=== PATIENT | female | born 1945 | race Caucasian/White ===

== ENCOUNTER 2018-10-14 18:13 | Outpatient (CLI) | payer OTHER ==
[~2018-10-14 18:13] MED LIST: GLUCOPHAGE XR500 MG PO; HYZAAR 100-251 UDTAB PO; METOPROLOL SUC100 MG PO; NAPR500T14 PO; NORVASC5 MG PO
== END 2018-10-14 18:56 | disposition home or self-care (01) ==
LOC: LAB 18:13
DX: N30.00 Acute cystitis without hematuria (principal); B96.29 Other Escherichia coli [E. coli] as the cause of diseases classified elsewhere; B96.1 Klebsiella pneumoniae [K. pneumoniae] as the cause of diseases classified elsewhere

== ENCOUNTER 2018-10-30 13:21 | Outpatient (CLI) | payer OTHER | END 2018-10-30 13:29 | disposition home or self-care (01) | LOC: LAB 13:21 | DX: N30.00 Acute cystitis without hematuria (principal); B96.5 Pseudomonas (aeruginosa) (mallei) (pseudomallei) as the cause of diseases classified elsewhere; B96.1 Klebsiella pneumoniae [K. pneumoniae] as the cause of diseases classified elsewhere ==

== ENCOUNTER → 2019-01-01 | Outpatient (CLI) | payer OTHER | END | disposition home or self-care (01) | LOC: LAB 15:24 | DX: N30.00 Acute cystitis without hematuria (principal); B96.89 Other specified bacterial agents as the cause of diseases classified elsewhere ==

== ENCOUNTER 2019-02-04 11:18 | Outpatient (CLI) | payer OTHER | END 2019-02-04 15:00 | disposition home or self-care (01) | LOC: LAB 11:18 | DX: R05 Cough (principal); R10.2 Pelvic and perineal pain ==

== ENCOUNTER 2019-03-10 09:42 | Outpatient (CLI) | payer OTHER | END 2019-03-10 09:48 | disposition home or self-care (01) | LOC: LAB 09:42 | DX: I10 Essential (primary) hypertension (principal); D68.8 Other specified coagulation defects; E11.9 Type 2 diabetes mellitus without complications ==

== ENCOUNTER 2019-03-23 07:33 | Inpatient (IN) | payer OTHER ==
[~2019-03-23] VITALS: Ht 160 cm; Wt 72.1 kg
[2019-03-25] MEDS ORDERED: GABAPENTIN300 MG PO (07:40)
[2019-03-25] MEDS ORDERED: LEVOTHYROXINE50 MCG PO (07:40)
== END 2019-03-31 10:34 | disposition home or self-care (01) | DRG 748 ==
LOC: ADM 10:15 → EDSTATUS 10:15 → OB/GYN 03-25 06:37 → O/R 03-25 06:37 → OB/GYN 03-25 07:00
PROVIDERS: ADMIT Obstetrics & Gynecology
PROC: 0JQC0ZZ Repair Pelvic Region Subcutaneous Tissue and Fascia, Open Approach (ICD-10-PCS; principal; 2019-03-25 07:00)
DX: N81.11 Cystocele, midline (principal); R33.8 Other retention of urine; N32.81 Overactive bladder; N39.41 Urge incontinence; D28.1 Benign neoplasm of vagina

== ENCOUNTER → 2019-03-23 09:47 | Outpatient (CLI) | payer OTHER ==
[~2019-03-23 09:47] MED LIST changes: +GABAPENTIN300 MG PO; +LEVOTHYROXINE50 MCG PO
== END | disposition home or self-care (01) ==
LOC: LAB 09:47
DX: E11.9 Type 2 diabetes mellitus without complications (principal)

== ENCOUNTER 2020-06-15 10:17 | Outpatient (CLI) | payer OTHER | END 2020-06-15 10:36 | disposition home or self-care (01) | LOC: NUCLEAR 10:17 | PROVIDERS: ATTEND Physical Medicine & Rehabilitation | DX: I73.9 Peripheral vascular disease, unspecified (principal) ==

== ENCOUNTER 2020-06-17 11:30 | Outpatient (CLI) | payer OTHER | END 2020-06-17 11:37 | disposition home or self-care (01) | LOC: NUCLEAR 11:30 → MRI 11:30 → NUCLEAR 11:37 → MRI 06-20 10:15 | PROVIDERS: ATTEND Physical Medicine & Rehabilitation | DX: I87.2 Venous insufficiency (chronic) (peripheral) (principal); I73.9 Peripheral vascular disease, unspecified ==

== ENCOUNTER 2020-06-20 10:40 | Outpatient (CLI) | payer OTHER | END 2020-06-20 10:53 | disposition home or self-care (01) | LOC: RAD 10:40 | PROVIDERS: ATTEND Physical Medicine & Rehabilitation | DX: M54.16 Radiculopathy, lumbar region (principal); M17.12 Unilateral primary osteoarthritis, left knee; M16.0 Bilateral primary osteoarthritis of hip; M54.5 Low back pain ==

== ENCOUNTER 2020-08-19 11:02 | Outpatient (CLI) | payer OTHER | END 2020-08-19 11:19 | disposition home or self-care (01) | LOC: RAD 11:02 | PROVIDERS: ATTEND Orthopaedic Surgery | DX: M16.11 Unilateral primary osteoarthritis, right hip (principal); Z76.89 Persons encountering health services in other specified circumstances ==

== ENCOUNTER 2020-09-07 13:10 | Outpatient (CLI) | payer OTHER | END 2020-09-07 14:52 | disposition home or self-care (01) | LOC: TOM 13:10 | PROVIDERS: ATTEND Orthopaedic Surgery | DX: M16.11 Unilateral primary osteoarthritis, right hip (principal) ==

== ENCOUNTER → 2020-09-12 | Outpatient (CLI) | payer OTHER | END | disposition home or self-care (01) | LOC: NUCLEAR 09-07 10:00 | PROVIDERS: ATTEND Orthopaedic Surgery | DX: M81.0 Age-related osteoporosis without current pathological fracture (principal) ==

== ENCOUNTER 2020-11-04 09:48 | Outpatient (CLI) | payer OTHER | END 2020-11-04 10:01 | disposition home or self-care (01) | LOC: LAB 09:48 → RAD 09:48 → LAB 10:01 | PROVIDERS: ATTEND Orthopaedic Surgery | DX: R10.2 Pelvic and perineal pain (principal); I10 Essential (primary) hypertension; Z76.89 Persons encountering health services in other specified circumstances; D64.89 Other specified anemias; E88.89 Other specified metabolic disorders; D68.8 Other specified coagulation defects; N39.8 Other specified disorders of urinary system; E83.42 Hypomagnesemia; E13.21 Other specified diabetes mellitus with diabetic nephropathy | CPT/HCPCS: 74177; Q9965 ==

== ENCOUNTER 2020-11-28 09:53 | Outpatient (CLI) | payer OTHER | END 2020-11-28 09:55 | disposition home or self-care (01) | LOC: NUCLEAR 09:53 | PROVIDERS: ATTEND Orthopaedic Surgery | DX: I73.89 Other specified peripheral vascular diseases (principal); I73.9 Peripheral vascular disease, unspecified ==

== ENCOUNTER 2020-11-29 09:26 | Outpatient (CLI) | payer OTHER | END 2020-11-29 09:29 | disposition home or self-care (01) | LOC: NUCLEAR 09:26 | PROVIDERS: ATTEND Orthopaedic Surgery | DX: I87.2 Venous insufficiency (chronic) (peripheral) (principal) ==

== ENCOUNTER 2020-12-02 09:37 | Outpatient (CLI) | payer OTHER | END 2020-12-02 09:45 | disposition home or self-care (01) | LOC: TOM 09:37 | PROVIDERS: ATTEND Obstetrics & Gynecology Gynecology | DX: R10.2 Pelvic and perineal pain (principal) | CPT/HCPCS: 74177; Q9965 ==